=== PATIENT | male | born 1960 | race African-American/Black ===

== ENCOUNTER 2020-08-02 18:56 | Inpatient (IN) | payer BC ==
[~2020-08-02 18:56] MED LIST: Iopamidol-370 76% 500 ML 1 ML ONE
[2020-08-02] MEDS ORDERED: Labetalol HCl 100 MG/20 ML VIAL ONE (19:11)
[2020-08-02 19:41] LABS: #Eosinphils 0.3 thou/uL (0.0-0.7); #Lymphocytes 1.4 thou/uL (1.20-3.40); #Monocytes 0.5 thou/uL (0.11-0.59); #Neutrophils 4.8 thou/uL (1.40-6.50); %Basophils 0.5 % (0.0-1.0); %Eosinophils 3.8 % (0.0-10.0); %Lymphocytes 20.4 % (21.0-51.0); %Monocytes 6.5 % (0.0-10.0); %Neutrophils 68.8 % (42.0-75.0); Hemoglobin 13.7 g/dL (14.0-18.0); Mean Corpuscular HGB CONC 34.4 g/dL (32.0-36.0); Mean Corpuscular Hemoglobin 34.4 pg (27.0-31.0); Mean Corpuscular Volume 99.9 fL (78.0-98.0); Mean Platelet Volume 8.9 fL (7.4-10.4); Platelet Count 184 thou/uL (130-400); RBC Distribution Width 13.9 % (11.5-14.5); Red Blood Cell (RBC) Count 3.98 mill/uL (4.70-6.10); White Blood Cell (WBC) Count 6.9 thou/uL (4.8-10.8)
[2020-08-02 19:48] LABS: PTT 27.3 sec (22.9-36.1); Prothrombin Time 13.4 sec (12.0-14.7)
[2020-08-02 20:03] LABS: ALT (SGPT) 15 U/L (8-55); AST (SGOT) 14 U/L (5-34); Albumin 4.1 g/dL (3.4-4.8); Alkaline Phosphatase 76 U/L (40-110); Anion Gap 15 mmol/L (10-20); BUN (Urea Nitrogen) 9 mg/dL (8.4-25.7); Bilirubin, Total 0.6 mg/dL (0.2-1.2); Calc. Creatinine Clearance 0 mL/min (70-130); Calcium 8.9 mg/dL (7.8-10.44); Carbon Dioxide 25 mmol/L (23-31); Chloride 109 mmol/L (98-107); Globulin 2.7 g/dL (2.4-3.5); Glucose 119 mg/dL (80-115); Potassium 3.5 mmol/L (3.5-5.1); Protein, Total 6.8 g/dL (5.8-8.1); Sodium 145 mmol/L (136-145)
[2020-08-02] MEDS ORDERED: niCARdipine 20MG In NaCl 20 MG/200 ML BAG ONE ×2 (20:21→22:27)
[2020-08-02 20:52] LABS: Bacteria/HPF None Seen HPF (None Seen); Bilirubin Negative (Negative); Blood, Urine Negative (Negative); Clarity Clear (Clear); Glucose, Urine (Dipstick) Normal (Negative); Ketone, Urine Trace mg/dL (Negative); Leukocyte 250 Leu/uL (Negative); Nitrite Negative (Negative); Protein, Urine (Dipstick) 200 mg/dL (Neg-Trace); RBC/HPF 0-3 HPF (0-3); Specific Gravity, Urine 1.019 (1.002-1.036); Squamous Epithelial 0-3 HPF (0-3); Urobilinogen Normal mg/dL (Less than 2); WBC/HPF 21-50 HPF (0-3)
[2020-08-02] MEDS ORDERED: Ondansetron PF 4 MG/2 ML Vial IVP PRN (22:35)
[2020-08-02] MEDS ORDERED: Acetaminophen 325 MG TAB PO PRN (22:35)
[2020-08-02] MEDS ORDERED: niCARdipine 40MG In NaCl 40 MG/200 ML BAG IVPB SCH (23:00)
[2020-08-02] MEDS ORDERED: niCARdipine 25 MG in Sodium Chloride 0.9% 250 ML 240 ML IVPB SCH (23:00)
[2020-08-02 23:14] LABS: Troponin I 0.061 ng/mL (< 0.028)
[2020-08-02 23:31] VITALS: BMI 40.1
[2020-08-03 00:24] LABS: SARS-CoV-2 PCR by NAA Not Detected (NotDetected)
[2020-08-03] MEDS ORDERED: levETIRAcetam 500 MG TAB PO SCH (00:45)
[2020-08-03] MEDS: cefTRIAXone\\ROCEPHIN 1 GM in Sodium Chloride 0.9% 100 ML IVPB SCH ×2 (01:41→23:25)
[2020-08-03 01:50] LABS: Troponin I 0.074 ng/mL (< 0.028)
[2020-08-03] MEDS: hydrALAZINE 20 MG/ML VIAL SLOW IVP PRN (03:00)
[2020-08-03 03:46] LABS: #Basophils 0.1 thou/uL (0.0-0.2); #Eosinphils 0.2 thou/uL (0.0-0.7); #Monocytes 0.8 thou/uL (0.11-0.59); #Neutrophils 5.3 thou/uL (1.40-6.50); %Basophils 0.7 % (0.0-1.0); %Eosinophils 2.2 % (0.0-10.0); %Lymphocytes 24.3 % (21.0-51.0); %Monocytes 9.1 % (0.0-10.0); %Neutrophils 63.8 % (42.0-75.0); Hemoglobin 13.3 g/dL (14.0-18.0); Mean Corpuscular HGB CONC 33.6 g/dL (32.0-36.0); Mean Corpuscular Hemoglobin 33.4 pg (27.0-31.0); Mean Corpuscular Volume 99.6 fL (78.0-98.0); Mean Platelet Volume 8.6 fL (7.4-10.4); Platelet Count 181 thou/uL (130-400); RBC Distribution Width 13.7 % (11.5-14.5); Red Blood Cell (RBC) Count 3.96 mill/uL (4.70-6.10); White Blood Cell (WBC) Count 8.2 thou/uL (4.8-10.8)
[2020-08-03 04:02] LABS: Anion Gap 16 mmol/L (10-20); BUN (Urea Nitrogen) 7 mg/dL (8.4-25.7); Calc. Creatinine Clearance 163 mL/min (70-130); Calcium 8.2 mg/dL (7.8-10.44); Carbon Dioxide 22 mmol/L (23-31); Chloride 108 mmol/L (98-107); Glucose 129 mg/dL (80-115); Potassium 3.3 mmol/L (3.5-5.1); Sodium 143 mmol/L (136-145)
[2020-08-03] MEDS ORDERED: Potassium Chloride 20 MEQ TAB PO SCH (05:15)
[2020-08-03] MEDS: levETIRAcetam 500 MG TAB PO SCH ×2 (08:12→21:46)
[2020-08-03] MEDS: Famotidine 20 MG TAB PO SCH ×2 (08:12→21:46)
[2020-08-03] MEDS: Amlodipine 10 MG TAB PO SCH (09:35)
[2020-08-03] MEDS: Carvedilol 6.25 MG TAB PO SCH ×2 (15:25→19:41)
[2020-08-03] MEDS ORDERED: hydrALAZINE 25 MG TAB PO SCH ×2 (15:45→16:15)
[2020-08-03] MEDS ORDERED: Carvedilol 6.25 MG TAB PO SCH (15:45)
[2020-08-03] MEDS ORDERED: cloNIDine 0.3mg/24 Hour PATCH TD SCH (15:45)
[2020-08-03] MEDS ORDERED: hydrALAZINE 10 MG TAB PO SCH (21:00)
[2020-08-03] MEDS: hydrALAZINE 25 MG TAB PO SCH (21:52)
[2020-08-04 03:55] LABS: #Eosinphils 0.3 thou/uL (0.0-0.7); #Lymphocytes 1.8 thou/uL (1.20-3.40); #Monocytes 0.6 thou/uL (0.11-0.59); #Neutrophils 3.4 thou/uL (1.40-6.50); %Basophils 0.5 % (0.0-1.0); %Eosinophils 5.4 % (0.0-10.0); %Lymphocytes 29.2 % (21.0-51.0); %Monocytes 9.4 % (0.0-10.0); %Neutrophils 55.5 % (42.0-75.0); Hemoglobin 13.3 g/dL (14.0-18.0); Mean Corpuscular HGB CONC 34.4 g/dL (32.0-36.0); Mean Corpuscular Hemoglobin 34.9 pg (27.0-31.0); Mean Platelet Volume 8.8 fL (7.4-10.4); Platelet Count 176 thou/uL (130-400); RBC Distribution Width 13.8 % (11.5-14.5); Red Blood Cell (RBC) Count 3.82 mill/uL (4.70-6.10); White Blood Cell (WBC) Count 6.2 thou/uL (4.8-10.8)
[2020-08-04 04:16] LABS: ALT (SGPT) 14 U/L (8-55); AST (SGOT) 14 U/L (5-34); Albumin 3.8 g/dL (3.4-4.8); Alkaline Phosphatase 72 U/L (40-110); Anion Gap 13 mmol/L (10-20); BUN (Urea Nitrogen) 9 mg/dL (8.4-25.7); Bilirubin, Total 0.9 mg/dL (0.2-1.2); Calc. Creatinine Clearance 155 mL/min (70-130); Calcium 8.4 mg/dL (7.8-10.44); Carbon Dioxide 24 mmol/L (23-31); Chloride 107 mmol/L (98-107); Globulin 2.7 g/dL (2.4-3.5); Glucose 115 mg/dL (80-115); Potassium 3.3 mmol/L (3.5-5.1); Protein, Total 6.5 g/dL (5.8-8.1); Sodium 141 mmol/L (136-145)
[2020-08-04] MEDS: Famotidine 20 MG TAB PO SCH ×2 (07:15→20:50)
[2020-08-04] MEDS: hydrALAZINE 25 MG TAB PO SCH ×2 (07:15→20:51)
[2020-08-04] MEDS: levETIRAcetam 500 MG TAB PO SCH ×2 (07:15→20:50)
[2020-08-04] MEDS: Carvedilol 6.25 MG TAB PO SCH ×2 (07:15→20:52)
[2020-08-04] MEDS: Amlodipine 10 MG TAB PO SCH (07:16)
[2020-08-04] MEDS: Cefdinir 300 MG CAP PO SCH (10:10)
[2020-08-04] MEDS: hydrALAZINE 20 MG/ML VIAL SLOW IVP PRN (15:44)
[2020-08-05 05:22] LABS: #Eosinphils 0.4 thou/uL (0.0-0.7); #Lymphocytes 1.6 thou/uL (1.20-3.40); #Monocytes 0.5 thou/uL (0.11-0.59); #Neutrophils 3.6 thou/uL (1.40-6.50); %Basophils 0.4 % (0.0-1.0); %Eosinophils 6.1 % (0.0-10.0); %Lymphocytes 26.4 % (21.0-51.0); %Monocytes 8.4 % (0.0-10.0); %Neutrophils 58.7 % (42.0-75.0); Hemoglobin 13.6 g/dL (14.0-18.0); Mean Corpuscular HGB CONC 33.7 g/dL (32.0-36.0); Mean Corpuscular Hemoglobin 33.9 pg (27.0-31.0); Mean Platelet Volume 8.8 fL (7.4-10.4); Platelet Count 185 thou/uL (130-400); RBC Distribution Width 13.5 % (11.5-14.5); White Blood Cell (WBC) Count 6.2 thou/uL (4.8-10.8)
[2020-08-05 05:50] LABS: Anion Gap 12 mmol/L (10-20); BUN (Urea Nitrogen) 11 mg/dL (8.4-25.7); Calc. Creatinine Clearance 171 mL/min (70-130); Calcium 8.7 mg/dL (7.8-10.44); Carbon Dioxide 25 mmol/L (23-31); Chloride 107 mmol/L (98-107); Glucose 107 mg/dL (80-115); Potassium 3.4 mmol/L (3.5-5.1); Sodium 141 mmol/L (136-145)
[2020-08-05] MEDS: Cefdinir 300 MG CAP PO SCH (09:54)
[2020-08-05] MEDS: Carvedilol 6.25 MG TAB PO SCH (09:55)
[2020-08-05] MEDS: levETIRAcetam 500 MG TAB PO SCH (09:55)
[2020-08-05] MEDS: Famotidine 20 MG TAB PO SCH (09:55)
[2020-08-05] MEDS: Amlodipine 10 MG TAB PO SCH (09:58)
[2020-08-05] MEDS: hydrALAZINE 25 MG TAB PO SCH (10:01)
[2020-08-05] MEDS ORDERED: hydrALAZINE 25 MG TAB PO SCH (15:00)
[2020-08-05 15:28] VITALS: BP 157/96; TEMP 98
[2020-08-10] MEDS ORDERED: cloNIDine 0.3mg/24 Hour PATCH TD SCH (09:00)
== END 2020-08-05 16:50 | disposition home or self-care (01) | DRG 78 ==
LOC: ERS 18:56 → CCU 22:23 → 2SE 08-04 08:23
PROVIDERS: ADMIT Internal Medicine; ATTEND Internal Medicine
DX: I67.4 Hypertensive encephalopathy (principal); I16.1 Hypertensive emergency; N39.0 Urinary tract infection, site not specified; I24.8 Other forms of acute ischemic heart disease; G40.909 Epilepsy, unspecified, not intractable, without status epilepticus; I10 Essential (primary) hypertension; R77.8 Other specified abnormalities of plasma proteins; I77.819 Aortic ectasia, unspecified site; E87.6 Hypokalemia; R73.9 Hyperglycemia, unspecified; Z88.0 Allergy status to penicillin; Z98.52 Vasectomy status; Z88.6 Allergy status to analgesic agent; Z79.82 Long term (current) use of aspirin; Z80.9 Family history of malignant neoplasm, unspecified; Z88.8 Allergy status to other drugs, medicaments and biological substances; Z86.73 Personal history of transient ischemic attack (TIA), and cerebral infarction without residual deficits
CPT/HCPCS: 36415; 36416; 70450; 70551; 71045; 71275; 72125; 74174; 80048; 80053; 81003; 81015; 82553; 83735; 84484; 85025; 85610; 85730; 87086; 87635; 93005; 93306; 95712; 95819; 95957; 96365; 96366; 96375; 96376; J0360; J0696; J3490; J7050; Q9967; U0003; U0005